=== PATIENT | male | born 1990 | race Caucasian/White ===

== ENCOUNTER 2021-05-16 11:44 | Emergency (ER) | payer BC, SELFPAY ==
[2021-05-16 11:50] VITALS: BP 118/70; PULSE 75; RESP 20; TEMP 36.7; O2SAT 100
--- NOTE | 2021-05-16 12:19 | ED.SKABFB ---
HPI - Skin/Abscess/Foreign Bdy General Chief complaint: Skin/Abscess/Foreign Body Stated complaint: bee sting on right arm swollen Time Seen by Provider: 05/16/21 12:19 Source: patient and family History of Present Illness HPI narrative: patient presents with wasp sting to right forearm. patient has been taking otc medications for his symptoms. no shortness of breath no streaking no drainage no Resp problems not allergic to bee stings. Related Data Allergies Allergy/AdvReac Type Severity Reaction Status Date / Time No Known Allergies Allergy Unknown Verified 05/16/21 12:08 Review of Systems Review of Systems: CONSTITUTIONAL: Denies fever, chills, or sweats. EYES: Denies visual changes, redness, or discharge. ENT: Denies rhinorrhea, congestion, sore throat, or otalgia. CARDIOVASCULAR: Denies chest pain, palpitations, or edema. RESPIRATORY: Denies cough or dyspnea. GASTROINTESTINAL: Denies abdominal pain, nausea, vomiting, or diarrhea. GENITOURINARY: Denies dysuria or hematuria. SKIN: Denies rash or itching. MUSCULOSKELETAL: Denies back pain, joint pain, or myalgia. NEUROLOGIC: Denies headache, numbness, or weakness. PSYCHIATRIC: Denies anxiety or depression. [facility] Family History Family History (Updated 05/12/16 @ 23:19 by DOCTOR UNKNOWN) Grandparent Family history of malignant neoplasm of bone Family history of malignant neoplasm of uterus Family history of malignant neoplasm of breast Social History Social History Smoking status: Never smoker Alcohol intake: current Comments At time of signature, agree with nursing past medical, surgical, social and family history. There is no relevant family history pertinent to the presenting complaint Exam Narrative: GENERAL: Well-appearing, well-nourished, and in no acute distress. HEAD: Normocephalic, atraumatic. EYES: PERRLA and EOMI. ENT: Nares clear, no rhinorrhea or epistaxis. Mucous membranes moist. NECK: Supple. CHEST: Clear to auscultation. No respiratory distress. HEART: Regular rate and rhythm. No murmur heard. Normal peripheral pulses. ABDOMEN: Soft, nontender, nondistended, normal active bowel sounds. EXTREMITIES: Normal range of motion. No edema. SKIN: Warm, dry, no rash. redness ans swelling to let forearm consistent with insect sting. NEURO: No focal deficits. Alert and oriented x3. [place] Coma Scale Eye Opening: Spontaneous 4 [place] Coma Scale Motor: Obeys Commands 6 [place] Coma Scale Verbal: Oriented 5 [place] Coma Scale Total 15 Course Vital Signs Vital signs: Vital Signs Temperature 36.7 C 05/16/21 11:50 Pulse Rate 75 05/16/21 11:50 Respiratory Rate 20 05/16/21 11:50 Blood Pressure 118/70 05/16/21 11:50 Pulse Oximetry 100 05/16/21 11:50 Temperature 36.7 C 05/16/21 11:50 Pulse Rate 75 05/16/21 11:50 Respiratory Rate 20 05/16/21 11:50 Blood Pressure 118/70 05/16/21 11:50 Pulse Oximetry 100 05/16/21 11:50 MDM - Skin/Abscess/Foreign Bdy Differential Diagnosis Differential diagnosis: Likely abscess of skin or subcutaneous tissue, viral exanthem, dermatophytosis, urticaria, herpes zoster, allergic reaction to drug, cellulitis, eczema, impetigo and contact dermatitis Critical Care Time Critical Care Time Critical Care Time: No Discharge Plan Discharge Clinical Impression: Insect bites, Bites and stings, insect Patient Disposition: Home, Self-Care Condition: Stable Instructions: Antibiotic Form, Insect Bite or Sting (ED) Additional Instructions: Continue [id number] medications for bee sting Take prednisone with food as prescribed until gone Apply antibiotic ointment to reddened area as prescribed Follow-up with primary care provider as needed If any new symptoms or worsening of symptoms go to ER immediately for further evaluation treat Prescriptions: New prednisone 20 mg tablet 40 mg PO DAILY 5 Days Qty: 10 RF: 0 mupirocin 2 % ointment 1 applic topical
== END 2021-05-16 12:30 | disposition home or self-care (01) ==
PROVIDERS: Emergency Provider Nurse Practitioner Family; PCP Nurse Practitioner Family
DX: T63.441A Toxic effect of venom of bees, accidental (unintentional), initial encounter (principal); F98.8 Other specified behavioral and emotional disorders with onset usually occurring in childhood and adolescence
CPT/HCPCS: 99213; G0463

== ENCOUNTER 2022-10-27 15:48 | Emergency (ER) | payer OTHER, SELFPAY ==
--- NOTE | 2022-10-27 15:53 | ED.URI ---
HPI - URI/Sore Throat General Chief Complaint: Upper Respiratory Infection Stated Complaint: sorethroat Time Seen by Provider: 10/27/22 15:52 Source: patient Mode of arrival: ambulatory Limitations: no limitations History of Present Illness HPI Narrative: Claudy is a 32-year-old male patient presenting to the clinic today with complaints of a sore throat to 3 days. He reports no fever or chills. Reports that he has pain on his tongue with some burning and tingling as well as a sore throat. States the pain is a lot worse when he is eating MD elicited complaint: sore throat and other (Oral thrush) Related Data Home Medications Medication Instructions Recorded Confirmed buprenorphine 8 mg-naloxone 2 mg 0.5 film sublingual BID 10/27/22 10/27/22 sublingual film duloxetine 40 mg capsule,delayed 40 mg PO DAILY 10/27/22 10/27/22 release Allergies Allergy/AdvReac Type Severity Reaction Status Date / Time No Known Allergies Allergy Unknown Verified 10/27/22 15:52 Review of Systems Review of Systems: Pertinent positives per HPI. Patient denies any fever, chills, rash, headache, visual changes, dizziness, cough, shortness of breath, chest pain, palpitations, nausea, vomiting, diarrhea, constipation, abdominal pain, or any urinary issues. PMFSH Family History Family History Grandparent Family history of malignant neoplasm of bone Family history of malignant neoplasm of uterus Family history of malignant neoplasm of breast Social History Social History Smoking status: Never smoker Alcohol intake: current Comments At the time of my signature, I reviewed and agree with the nursing past medical, surgical, social, and family history. There is no relevant family history pertinent to the patient complaint. Exam Narrative: General: Well-developed, well nourished, in no apparent distress Head: Normocephalic, atraumatic Eyes: Pupils equally round and reactive to light bilaterally, EOM intact, sclera and conjunctive clear, no discharge, lids normal Ears: TMs intact and clear, ear canals clear, no drainage, grossly hearing normal. Nose: Nares patent, no discharge, no inflammation, no sinus tenderness. Mouth: Oral pharynx without lesions or masses, good dentition, MMM. Swollen white patches noted to the lateral right tongue with mild white covering of the dorsal tongue, oropharynx red Neck: Supple, trachea midline, no enlargement of anterior or posterior cervical nodes, no thyroid masses or goiter palpable. Cardio: Regular rate and rhythm, s1 and s2 normal, no murmur appreciated. Resp: Clear to auscultation bilaterally, no rhonchi, rales, wheezing or rubs Course Course Emergency Course: Portions of this record may have been created with voice recognition software. Level of Care: Express Care Visit Vital Signs Vital signs: Vital signs reviewed MDM - URI/Sore Throat MDM Narrative Medical decision making narrative: At the time of visit patient is resting comfortably on the exam table. I suspect the patient has oral thrush versus stomatitis. I will send in prescription for nystatin swish and swallow as well some lidocaine and gave him instructions to mix this with some Maalox and Benadryl to help alleviate symptoms. Supportive measures were discussed with the patient he voiced understanding of discharge instructions and agrees to treatment plan Differential Diagnosis Differential diagnosis: Likely upper respiratory infection, otitis media, sinusitis, viral infection, bronchitis, influenza, pharyngitis and other (COVID) Discharge Plan Discharge Clinical Impression: Oral thrush, Stomatitis Patient Disposition: Home, Self-Care Condition: Stable Instructions: Antibiotic Form, Oral Candidiasis (ED), Gingivostomatitis (ED) Additional Instructions: Strep screen was negative in t
[2022-10-27 16:05] VITALS: BP 126/59; PULSE 79; RESP 16; TEMP 36.3; O2SAT 99
== END 2022-10-27 16:26 | disposition home or self-care (01) ==
PROVIDERS: Emergency Provider Nurse Practitioner Family
DX: B37.0 Candidal stomatitis (principal); K12.1 Other forms of stomatitis
CPT/HCPCS: 87081; 87880; 99213; G0463